=== PATIENT | female | born 1990 | race African-American/Black ===

== ENCOUNTER 2018-11-16 13:08 | Emergency (ER) | payer MEDICAID ==
[~2018-11-16] VITALS: Ht 180.3 cm; Wt 87.1 kg
[2018-11-16 14:39] VITALS: BP 128/74
[2018-11-16] MEDS ORDERED: methylPREDNISolone SOD SUCC 125 MG/2 ML VL IM ONE (15:00)
[2018-11-16] MEDS ORDERED: cefTRIAXone SOD 1,000 MG VL IM ONE (15:00)
== END 2018-11-16 15:31 | disposition home or self-care (01) ==
LOC: ER 13:08
DX: J03.90 Acute tonsillitis, unspecified (principal); L53.8 Other specified erythematous conditions; Z88.0 Allergy status to penicillin
CPT/HCPCS: 96372; 99283; J0696; J2930

== ENCOUNTER 2019-07-01 08:20 | Emergency (ER) | payer MEDICAID ==
[~2019-07-01] VITALS: Ht 182.9 cm; Wt 106.6 kg
[2019-07-01 08:55] LABS: Basophils # (auto) 0 uL; Basophils % (auto) 0.4 % (0.0-2.0); Eosinophils # (auto) 0.1 uL; Eosinophils % (auto) 2.2 % (0.0-7.0); Hemoglobin 13.2 g/dL (12.2-16.2); Lymphocytes # (auto) 1.6 uL; Lymphocytes % (auto) 28.4 % (10.0-50.0); Mean Corpuscular Hemoglobin 28.9 pg (28.0-32.0); Mean Corpuscular Volume 87.6 fL (80.0-100.0); Monocytes # (auto) 0.5 uL; Monocytes % (auto) 8.9 % (0.0-12.0); Neutrophils # (auto) 3.4 uL; Neutrophils % (auto) 60.1 % (37.0-80.0); Nucleated Red Blood Cells % 0.2 %; Platelet Count (auto) 233 10^3/uL (140-450); Red Blood Cells 4.56 10^6/uL (4.0-5.20); Red Cell Distribution Width 14.4 % (11.8-14.3); White Blood Cell 5.7 10^3/uL (4.4-10.8)
[2019-07-01 09:03] LABS: Urine Bacteria FEW /hpf (None Seen); Urine Blood Negative /uL (Negative); Urine Mucus FEW (None Seen); Urine WBC 4 /hpf (0 - 5)
[2019-07-01 09:16] LABS: Alanine Aminotransferase 29 U/L (13-56); Albumin 4.1 g/dL (3.4-5.0); Anion Gap 6 (5-15); Aspartate Aminotransferase 17 U/L (15-37); Blood Urea Nitrogen 10 mg/dL (7-18); Calcium 8.6 mg/dL (8.5-10.1); Carbon Dioxide 27 mmol/L (21-32); Chloride 108 mmol/L (98-107); Glucose 88 mg/dL (74-106); Potassium 3.6 mmol/L (3.5-5.1); Sodium 141 mmol/L (136-145)
[2019-07-01 09:21] LABS: Alkaline Phosphatase 55 U/L (45-117); BUN/Creatinine Ratio 13.2; GFR African American 117 mL/min; GFR Non-African American 97 mL/min; Total Protein 7.8 g/dL (6.4-8.2)
[2019-07-01 12:36] VITALS: BP 115/65
== END 2019-07-01 12:42 | disposition home or self-care (01) ==
LOC: ER 08:22
DX: R07.89 Other chest pain (principal); N39.0 Urinary tract infection, site not specified; F41.9 Anxiety disorder, unspecified; F17.210 Nicotine dependence, cigarettes, uncomplicated; Z88.0 Allergy status to penicillin
CPT/HCPCS: 36415; 71046; 80053; 81001; 81025; 84484; 85025; 93005